=== PATIENT | female | born 1950 | race Caucasian/White ===

== ENCOUNTER 2016-10-04 06:20 | Inpatient (IN) ==
--- NOTE | 2016-10-03 20:53 | Discharge Summary ---
<Nelly Garcia - Last Filed: 10/03/16 20:50> Date of Encounter: 10/03/16 - Discharge Diagnosis (1) Loosening of knee joint prosthesis Priority: Primary Status: Acute Qualifiers: Encounter type: initial encounter Qualified Code(s): T84.038A - Mechanical loosening of other internal prosthetic joint, initial encounter; Z96.659 - Presence of unspecified artificial knee joint (2) HTN (hypertension) Priority: Secondary Status: Chronic Qualifiers: Hypertension type: essential hypertension Qualified Code(s): I10 - Essential (primary) hypertension (3) Pacemaker Priority: Secondary Status: Chronic (4) Rheumatoid arthritis Priority: Secondary Status: Chronic Qualifiers: Rheumatoid arthritis location: unspecified site Rheumatoid factor presence : unspecified presence Qualified Code(s): M06.9 - Rheumatoid arthritis, unspecified - Discharge Medications Home Medications: Aspirin Enteric Coated [Aspirin EC] 325 mg PO BID #42 tablet. 10/03/16 [Rx] OxyCODONE Immed Rel [Roxicodone 5 MG] 5 - 10 mg PO Q6HR PRN #40 tablet 10/03/16 [Rx] Etanercept [Enbrel] 50 mg SQ QWEEK 10/04/16 [History] Levothyroxine [Synthroid] 50 mcg PO DAILY 10/04/16 [History] Lisinopril/Hydrochlorothiazide [Zestoretic 20-25 mg Tablet] 1 tab PO DAILY 10/04 [History] Omeprazole [PriLOSEC] 40 mg PO DAILY 10/04/16 [History] Potassium Chloride [K-Tab ER] 20 meq PO BID 10/04/16 [History] Allergies/Adverse Reactions: Allergies codeine Adverse Reaction (Verified 10/04/16 12:39) Anaphylaxis Hydromorphone [From Dilaudid] Adverse Reaction (Verified 10/04/16 12:39) Anaphylaxis Hydroxychloroquine [From Plaquenil] Adverse Reaction (Verified 10/04/16 12:39) Rash rofecoxib [From Vioxx] Adverse Reaction (Verified 10/04/16 12:39) Rash Primary care physician: Sage Villafana MD - Patient Status Disposition: Home, Self-Care Condition: Good - Discharge Instructions Follow Up With: Sage Villafana MD [Primary Care Provider] - - Hospital Course Hospital course: Ms. Huynh is a 66 year old female - Time Spent with Patient Total time spent providing and/or coordinating discharge services: <Morteza Miller Ángel - Last Filed: 10/05/16 06:45> Date of Encounter: 10/05/16 Time of Encounter: 06:44 - Discharge Diagnosis (1) Loosening of knee joint prosthesis Priority: Primary Status: Acute Qualifiers: Encounter type: subsequent encounter Qualified Code(s): T84.038D - Mechanical loosening of other internal prosthetic joint, subsequent encounter; Z96.659 - Presence of unspecified artificial knee joint (2) HTN (hypertension) Priority: Secondary Status: Chronic Qualifiers: Hypertension type: essential hypertension Qualified Code(s): I10 - Essential (primary) hypertension (3) Pacemaker Status: Chronic (4) Rheumatoid arthritis Priority: Secondary Status: Chronic Qualifiers: Rheumatoid arthritis location: unspecified site Rheumatoid factor presence : unspecified presence Qualified Code(s): M06.9 - Rheumatoid arthritis, unspecified Date of admission: 10/04/16 06:26 Primary care physician: Sage Villafana MD - Patient Status Functional capacity at discharge: uses cane/walker Overall status at discharge: patient is progressing back to baseline - Hospital Course Hospital course: Ms. Huynh is a 66 year old female The patient had an uneventful postoperative course. They received antibiotics and physical therapy and were discharged in stable condition. There will follow -up in the office in 2 weeks. Aspirin DVT prophylaxis - Time Spent with Patient Total time spent providing and/or coordinating discharge services:
--- NOTE | 2016-10-04 06:26 | History & Physical Report ---
Date of Encounter: 10/04/16 Time of Encounter: 06:26 24 Hour HP Update - Instructions Instructions: If the History and Physical is less than 30 days old and was completed prior to A.M. admission and or procedure and has NOT been updated on calendar day of procedure please complete this update prior to performing procedure. - Update Patient reports changes in Medical Condition: No Changes in assessment/condition: No Changes in Medication: No Preop tests/diagnostics Reviewed: Yes Surgery Remains Indicated: Yes Consent for Planned Operative Procedure(s) Verified: Yes - Pre-Operative Checklist Preoperative Checklist Indicated: No Prophylactic Antibiotic Ordered: Yes Is VTE Prophylaxis Indicated?: Yes
[2016-10-04] MEDS ORDERED: CeFAZolin Pre 2,000 MG/100 ML 2,000 MG/100 ML BAG IVPB ONE (06:51)
[2016-10-04] MEDS ORDERED: Ringers Solution, Lactated 1,000 ML IVC SCH ×2 (07:00→10:32)
[2016-10-04] MEDS ORDERED: *HR* FentaNYL (PF) 100 MCG/2 ML VIAL ONE (07:18)
[2016-10-04] MEDS ORDERED: *HR* Propofol 200 MG/20 ML VIAL IVP ONE (07:18)
[2016-10-04] MEDS ORDERED: *HR* Midazolam HCl 2 MG/2 ML VIAL ONE (07:18)
[2016-10-04] MEDS ORDERED: Ondansetron 4 MG/2 ML VIAL ONE (07:22)
[2016-10-04] MEDS ORDERED: Dexamethasone 4 MG/ML VIAL ONE (07:22)
[2016-10-04] MEDS ORDERED: *HR* Phenylephrine 10 MG/ML VIAL ONE (07:22)
[2016-10-04] MEDS ORDERED: Lidocaine -MPF 2% 2 ML VIAL ONE (07:22)
[2016-10-04] MEDS ORDERED: Famotidine 20 MG/2 ML VIAL IVP ONE (07:45)
--- NOTE | 2016-10-04 07:49 | Anesthesia Evaluation PreOp ---
Date of Encounter: 10/04/16 Time of Encounter: 07:45 - Past History Planned Operation: Left TKA Revision Cardiac History: HTN, Pacemaker/ICD (Last interrogated ) Pulmonary History: Denies Any Significant HX SPORTS RECRUITER History: Denies Any Significant HX Other Medical History: GERD, Other (G6PD Def) Anesthesia History: No Prior Anesthetic Complications : No Alcohol Use: none Drug use: none Medications and Allergies Aspirin Enteric Coated [Aspirin EC] 325 mg PO BID #42 tablet. 10/03/16 [Rx] OxyCODONE Immed Rel [Roxicodone 5 MG] 5 - 10 mg PO Q6HR PRN #40 tablet 10/03/16 [Rx] Etanercept [Enbrel] 50 mg SQ QWEEK 10/04/16 [History] Levothyroxine [Synthroid] 50 mcg PO DAILY 10/04/16 [History] Lisinopril/Hydrochlorothiazide [Zestoretic 20-25 mg Tablet] 1 tab PO DAILY 10/04 [History] Omeprazole [PriLOSEC] 40 mg PO DAILY 10/04/16 [History] Potassium Chloride [K-Tab ER] 20 meq PO BID 10/04/16 [History] Allergies codeine Adverse Reaction (Unverified 11/26/15 09:32) Anaphylaxis Hydromorphone [From Dilaudid] Adverse Reaction (Unverified 11/26/15 09:32) Anaphylaxis Hydroxychloroquine [From Plaquenil] Adverse Reaction (Unverified 11/26/15 09:32) Rash rofecoxib [From Vioxx] Adverse Reaction (Unverified 11/26/15 09:32) Rash - Meds/Allergy Pre-op Review Medications Reviewed: Yes Allergies Reviewed: Yes Beta Blockers on Current Med List: No Anesthesia Results - Labs Laboratory Tests 09/23/16 09/23/16 08:34 08:34 Hgb 13.8 Hct 43.6 Plt Count 320 Sodium 136 Potassium 4.7 H BUN 17 Creatinine 0.81 - Imaging EKG: report reviewed (Electronic Atrial Pacemaker) Anesthesia Exam O2 Sat Height 1.6 m Height 1.6 m Height 1.6 m Weight 77.564 kg Weight 77.564 kg Weight 77.564 kg O2 Sat by Pulse Oximetry 95 Vital Signs Temp Pulse Resp BP Pulse Ox 98.2 F 82 18 148/74 95 10/04/16 06:39 10/04/16 06:39 10/04/16 06:39 10/04/16 06:39 10/04/16 06:39 Height: 5'3 Weight: 171 lbs NPO (# of Hours): MN - HEENT Pupil (Motor): Pupils equal, EOMI Mallampati: II Teeth: Edentulous Oral Opening: Less than or equal to 3 - SPORTS RECRUITER LOC: Oriented [employer] RE[employer]ITER Motor: Normal RUE, Normal LUE, Normal RLE, Normal LLE, Normal Face [employer] RE[employer] Sensory: Normal: RUE, LUE, RLE, LLE, Face - Cardiac Rhythm: Regular Murmur: None JVD: No Carotid Bruit: No - Pulmonary Breath Sounds: bilateral Clear Respiratory Effort: Symmetrical Anesthesia Assess/Plan ASA Score: 3 (Arrhythmia HTN GERD) Modified Darragh Scale for Level of Consciousness: Cooperative, oriented, and tranquil Anesthetic Plan: General, Regional Monitoring Plan: Standard Monitors Recovery Plan: PACU (Discussed GA and RA, agrees to proceed)
[2016-10-04] MEDS ORDERED: Tetracaine/PF 20 MG/2 ML AMPUL SPINA ONE (08:02)
--- NOTE | 2016-10-04 08:42 | Anesthesia Procedures ---
Date of Encounter: 10/04/16 Time of Encounter: 07:45 Procedures: Anesthesia - Nerve Block Procedure Date: 10/04/16 Time: 08:10 Pre-op Diagnosis: Left TKA Loosening Surgical Procedure: Left TKA Revision Tibial Component Checklist: Correct Patient Identifier Correct side: Left Blood Thinner: No Monitor Applied: EKG, BP, Pulse Oximetry Supplemental Oxygen via Nasal Cannula (L/min): 2 Sedation: Versed (mg): 2 Sedation: Fentanyl (mcg): 50 Indication: Post Op Analgesia Pre-op Neuro Deficits: No Block Type: Femoral Catheter placed: No Depth at skin (cm): 2 Sterile Technique: Yes Ultrasound used: Yes Anatomy identified: Yes Visual spread of Local: Yes Neuro Stimulation: Yes Nerve Stimulator Range: 0.2 - 0.4 mA Blood on Needle Aspiration: No Smooth Injection of Local: Yes Pain with Injection of Local: No Prep: Chlorhexadine, Alcohol Needle: 22 x 50 mm Stimuplex Local: Tetracaine (20), Other (Bupivacaine 0.5%) Volume (cc): 30 Number of Attempts: 1 Complications: None/effective block Vitals: Vital Signs/O2 Sat/Glucose, Most Current Temp Pulse Resp BP Pulse Ox 10/04/16 08:23 81 16 136/62 96 10/04/16 08:12 84 17 132/62 95 10/04/16 08:06 82 137/59 99 10/04/16 06:39 98.2 F 82 18 148/74 95
--- NOTE | 2016-10-04 09:16 | Orthopedic Operative Note ---
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 After general anesthesia was administered the operative knee was examined. Findings were noted in the exam under anesthesia. The operative extremity was prepped and draped in sterile surgical fashion. The patient received IV antibiotics prior to skin incision. A standard midline incision was made centered over the patella. The incision was made through the skin and subcutaneous tissue through the old incision. A medial parapatellar tendon approach was performed. Care was taken to preserve tissue along the medial aspect of the patella. And to protect the patella tendon. The deep MCL was released off the medial tibia. The infra patella fat pad was excised. Cultures were obtained as well as Gram stain. 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 An extensive synovectomy was performed. The knee was brought into flexion the tibial poly-was removed. The femur was well fixed. Attention was then turned to the tibial component. The tibial component was loose and removed with an osteotome without any bone loss. Tibia was recut just below the level of the cement mantle. The tibia was prepared first sized to a 3 reamed to a 12x50 stem. The finishing punch was seated. Trial had good fit and fixation. Trial reduction revealed full extension and full flexion no varus valgus instability with an 14 PS Lillian. Trial components removed knee sat for 2 minutes with a Betadine saline solution. It was irrigated out with pulse irrigation. Components were assembled on the back table. The tibia cemented. The 14 PS Lillian was seated and secure. The had full flexion and full extension and excellent patella tracking no varus valgus instability. After the cement hardened the knee was irrigated out again. The knee was taken through a range of motion had excellent patella tracking. The extensor mechanism was closed with a running #2 Fiberwire suture and a running #2 PDS suture. The deep tissue was irrigated and closed deep with #1 PDS suture superficially with 0 PDS suture. The skin was closed with Dermabond and skin anne. The patient was placed in a sterile dressing and postoperative brace. They were extubated and transferred to recovery room in stable condition. Anesthesia: GETA Surgeon: Morteza Miller Condition: stable Disposition: PACU
[2016-10-04] MEDS ORDERED: *HR* Morphine 10 MG/ML VIAL ONE (09:28)
[2016-10-04] MEDS: *HR* Morphine 2 MG/ML SYRINGE IVP PRN ×2 (09:58→10:08)
[2016-10-04 10:07] LABS: Hematocrit 37.6 % (35.3-44.9); Hemoglobin 11.8 g/dL (11.5-15.4)
--- NOTE | 2016-10-04 10:31 | Anesthesia Evaluation Post Op ---
Date of Encounter: 10/04/16 Time of Encounter: 10:29 - Vital Signs Vital Signs: Vital Signs/O2 Sat, Most Current Temp Pulse Resp BP Pulse Ox 97.9 F 86 16 120/57 100 10/04/16 10:27 10/04/16 10:27 10/04/16 10:27 10/04/16 10:10/04/16 10:27 - Lungs Lungs: Clear Ascult./Percussion - Airway Airway: Non-obstructed - Cardiovascular Regular Rate - Mental Status Mental Status: Alert & Oriented, Answers Appropriately - Pain Pain Scale: 0 Pain Scale used: Numeric (1 - 10) - Nausea Vomiting Nausea Vomiting: Not Present - Hydration Hydration: Ice chips, Has not voided - Discharge PostOp Status: Transfer Patient to floor
[2016-10-04] MEDS ORDERED: *HR* Morphine 2 MG/ML SYRINGE IVP PRN (10:32)
[2016-10-04] MEDS ORDERED: Ondansetron 4 MG/2 ML VIAL IVP PRN (10:32)
[2016-10-04] MEDS ORDERED: Naloxone 0.4 MG/ML INJ IVP PRN (10:32)
[2016-10-04] MEDS ORDERED: *HR* OxyCODONE Immed Rel 5 MG TABLET PO PRN (10:32)
[2016-10-04] MEDS ORDERED: Albuterol Neb 1.25 MG/3 ML VIAL IH ONE (10:32)
[2016-10-04] MEDS ORDERED: MOM Conc 10 ML UD.LIQ PO PRN (10:32)
[2016-10-04] MEDS ORDERED: Temazepam 15 MG CAPSULE PO PRN (10:32)
[2016-10-04] MEDS ORDERED: (Etanercept [Enbrel] 50 MG) SQ SCH (10:32)
[2016-10-04] MEDS ORDERED: Acetaminophen 325 MG TABLET PO PRN (10:32)
[2016-10-04] MEDS ORDERED: Sennosides 8.6 MG TABLET PO PRN (10:32)
[2016-10-04] MEDS: *HR* OxyCODONE Immed Rel 5 MG TABLET PO PRN (12:47)
[2016-10-04] MEDS: ceFAZolin 2,000 MG in D5% in Water 100 ML IVPB SCH ×2 (15:56→23:47)
[2016-10-04] MEDS ORDERED: *HR* Promethazine 25 MG/ML VIAL IVP PRN (16:28)
[2016-10-04] MEDS ORDERED: *HR* Promethazine 25 MG/ML VIAL ONE (16:35)
[2016-10-04] MEDS: *HR* Enoxaparin 30 MG/0.3 ML SYRINGE SQ SCH (16:41)
[2016-10-04] MEDS ORDERED: *HR* Enoxaparin 30 MG/0.3 ML SYRINGE SQ SCH (18:00)
[2016-10-05] MEDS: *HR* OxyCODONE Immed Rel 5 MG TABLET PO PRN ×2 (02:26→09:39)
[2016-10-05] MEDS: *HR* Enoxaparin 30 MG/0.3 ML SYRINGE SQ SCH (05:15)
[2016-10-05 06:14] LABS: Hemoglobin 10.2 g/dL (11.5-15.4)
[2016-10-05 06:38] LABS: BUN/Creatinine Ratio 19 (6-26); Blood Urea Nitrogen 13 mg/dL (7-20); Calcium 9.7 mg/dL (8.6-10.8); Carbon Dioxide 26 mEq/L (19-29); Chloride 106 mEq/L (98-109); Glucose 104 mg/dL (70-99); Osmolality,Calculated 288 (280-300); Potassium 4.3 mEq/L (3.5-4.5); Sodium 139 mEq/L (136-145); eGFR For African Americans > 60 (> 60); eGFR For Non-African Americans > 60 (> 60)
--- NOTE | 2016-10-05 06:44 | Orthopedics Progress Note ---
Date of Encounter: 10/05/16 Time of Encounter: 06:44 - Assessment and Plan (1) Loosening of knee joint prosthesis Current Visit: Yes Status: Acute Qualifiers: Encounter type: subsequent encounter Qualified Code(s): T84.038D - Mechanical loosening of other internal prosthetic joint, subsequent encounter; Z96.659 - Presence of unspecified artificial knee joint (2) HTN (hypertension) Current Visit: Yes Status: Chronic Qualifiers: Hypertension type: essential hypertension Qualified Code(s): I10 - Essential (primary) hypertension (3) Pacemaker Current Visit: Yes Status: Chronic (4) Rheumatoid arthritis Current Visit: Yes Status: Chronic Qualifiers: Rheumatoid arthritis location: unspecified site Rheumatoid factor presence : unspecified presence Qualified Code(s): M06.9 - Rheumatoid arthritis, unspecified Subjective Interval history: Patient was seen this morning doing well without complaints. Afebrile vital signs stable. Operative extremity: Neurovascularly intact Dressing clean dry and intact Calves nontender Assessment and plan: Continue with postoperative care Hematocrit 32 discharged today Objective Vital signs: Vital Signs Temp Pulse Resp BP Pulse Ox 10/05/16 04:00 97.0 F L 88 17 130/70 99 10/05/16 00:00 97.2 F L 101 17 137/77 100 10/04/16 20:00 97.6 F 103 17 141/78 100 10/04/16 13:34 98.0 F 99 16 130/76 95 10/04/16 12:46 16 100 10/04/16 12:40 94 16 136/82 98 10/04/16 11:34 97.6 F 83 16 136/82 99 10/04/16 11:03 97.5 F L 88 16 124/81 98 10/04/16 10:43 97.7 F 84 16 136/84 98 10/04/16 10:27 97.9 F 86 16 120/57 100 10/04/16 10:17 88 16 122/49 100 10/04/16 10:07 97.9 F 91 16 131/60 96 10/04/16 09:57 89 16 139/73 97 10/04/16 09:47 87 16 133/67 96 10/04/16 09:37 98 F 84 16 138/75 95 10/04/16 08:23 81 16 136/62 96 10/04/16 08:12 84 17 132/62 95 10/04/16 08:06 82 137/59 99 Intake and Output 10/04/16 10/04/16 10/05/16 15:59 23:59 07:59 Intake Total 100 / 100 400 / 400 1100 / 1100 Output Total 200 / 200 550 / 550 250 / 250 Balance -100 / -100 -150 / -150 850 / 850 Intake: IV Fluids 100 / 100 100 / 100 1100 / 1100 Lactated Ringers 1,000 ML 1000 / 1000 @ 75 mls/hr IVC .[id number] ANAND Rx#:[id number] Ancef 2,000 MG In 100 / 100 100 / 100 Dextrose 5% 100 ML @ 200 mls/hr IVPB Q8H ANAND Rx#: [id number] Ancef Premix 2,000 MG/100 100 / 100 ML 2,000 mg In 100 ml @ 200 mls/hr IVPB PREOP ONE Rx#:[id number] Oral 0 / 0 300 / 300 Output: Urine 550 / 550 250 / 250 Estimated Blood Loss 200 / 200 Other: # Voids 1 1 - Labs CBC & BMP: 10/05/16 05:50 10/05/16 05:50 Labs: Abnormal lab results Hgb 10.2 g/dL (11.5-15.4) L D 10/05/16 05:50 Hct 32.0 % (35.3-44.9) L 10/05/16 05:50 Glucose 104 mg/dL (70-99) H 10/05/16 05:50 - VTE Documentation of Mechanical Device: Venous foot pump, device Consult Discharge Plan - Plan Referrals: Sage Villafana MD [Primary Care Provider] -
[2016-10-05 07:23] VITALS: BP 125/73
== END 2016-10-05 11:30 | disposition home or self-care (01) | DRG 468 ==
LOC: SAMDAY 06:20 → 3NENU 06:26
PROVIDERS: ADMIT Orthopaedic Surgery; ATTEND Orthopaedic Surgery

== ENCOUNTER 2021-10-14 06:45 | Inpatient (IN) ==
[~2021-10-14 06:45] MED LIST: Hydrogen Peroxide 3% (Sterile) 473 ML SOLUTION IR ONE
[2021-10-14] MEDS ORDERED: Famotidine 20 MG/2 ML VIAL IVP ONE (07:40)
[2021-10-14] MEDS ORDERED: Acetaminophen IV 1,000 MG/100 ML BAG IVPB ONE (07:40)
[2021-10-14] MEDS ORDERED: *HR* Propofol 200 MG/20 ML VIAL IVP ONE (07:42)
[2021-10-14] MEDS ORDERED: *HR* FentaNYL (PF) 100 MCG/2 ML VIAL ONE ×2 (07:42→11:14)
[2021-10-14] MEDS ORDERED: Lidocaine -MPF 2% 5 ML VIAL ONE ×2 (07:42→07:44)
[2021-10-14] MEDS ORDERED: Ondansetron 4 MG/2 ML VIAL ONE ×2 (07:42→13:19)
[2021-10-14] MEDS ORDERED: Ropivacaine/PF 0.5% 30 ML VIAL ONE (07:47)
[2021-10-14] MEDS ORDERED: CeFAZolin Syr 2,000MG/20 ML 2,000 MG/20 ML SYRINGE IVPB ONE (08:15)
[2021-10-14] MEDS ORDERED: Ringers Solution, Lactated 1,000 ML IVC SCH (08:15)
[2021-10-14] MEDS ORDERED: *HR* Succinylcholine 200 MG/10 ML VIAL IVP ONE (09:23)
[2021-10-14] MEDS ORDERED: TOTAL JOINT MIXTURE (100ML) INTRAART ONE (09:40)
[2021-10-14] MEDS ORDERED: Povidone-Iodine 45 ML, Sodium Chloride IRRigation 1,000 ML IR ONE (09:40)
[2021-10-14] MEDS ORDERED: Vancomycin 1,000 MG VIAL ONE ×2 (09:44→10:03)
[2021-10-14] MEDS ORDERED: Tobramycin Sulf (Sterile) 1.2 GM VIAL ONE (10:03)
[2021-10-14] MEDS ORDERED: Gentamicin 80 MG/2 ML VIAL ONE ×2 (10:06→10:08)
[2021-10-14] MEDS ORDERED: *HR* Promethazine 25 MG/ML VIAL IM PRN (13:41)
[2021-10-14] MEDS ORDERED: Ondansetron 4 MG/2 ML VIAL IVP PRN (13:41)
[2021-10-14] MEDS ORDERED: MOM Conc 10 ML UD.LIQ PO PRN (13:41)
[2021-10-14] MEDS ORDERED: Naloxone 0.4 MG/ML INJ IVP PRN (13:41)
[2021-10-14] MEDS ORDERED: Sennosides 8.6 MG TABLET PO PRN (13:41)
[2021-10-14] MEDS: *HR* OxyCODONE Immed Rel 5 MG TABLET PO PRN (14:34)
[2021-10-14] MEDS: Ascorbic Acid 500 MG TABLET PO SCH (17:53)
[2021-10-14] MEDS: CeFAZolin 2 GM/120 ML BAG IVPB SCH (18:10)
[2021-10-15] MEDS: CeFAZolin 2 GM/120 ML BAG IVPB SCH (01:13)
[2021-10-15] MEDS: *HR* OxyCODONE Immed Rel 5 MG TABLET PO PRN ×2 (03:16→15:39)
[2021-10-15 04:46] LABS: Basophils % 0.1 %; Hematocrit 30.2 % (35.3-44.9); Hemoglobin 9.9 g/dL (11.5-15.4); Immature Granulocytes % 0.6 % (0-4); Lymphocytes % 5.5 %; Mean Corpuscular HGB Conc 32.8 g/dL (31.6-35.5); Mean Corpuscular Hemoglobin 28.9 pg (28.0-33.3); Mean Platelet Volume 10.2 fL (9.4-12.4); Monocytes # 0.8 K/mcL (0.0-1.3); Monocytes % 4.5 %; Neutrophils # 16.2 K/mcL (1.6-8.9); Platelet Count 257 K/mcL (140-400); Red Blood Count 3.43 M/mcL (3.82-4.97); Red Cell Distribution Width 14.6 % (11.5-14.5); Segmented Neutrophils % 89.3 %; White Blood Count 18.2 K/mcL (4.3-11.1)
[2021-10-15 05:06] LABS: BUN/Creatinine Ratio 27 (6-26); Blood Urea Nitrogen 21 mg/dL (8-23); Calcium 9.1 mg/dL (8.6-10.3); Carbon Dioxide 26 mEq/L (23-29); Chloride 105 mEq/L (98-107); Glucose 127 mg/dL (70-105); Osmolality,Calculated 283 (280-300); Sodium 134 mEq/L (136-145); eGFR For African Americans > 60 (> 60); eGFR For Non-African Americans > 60 (> 60)
[2021-10-15] MEDS: Ascorbic Acid 500 MG TABLET PO SCH (08:40)
[2021-10-15] MEDS ORDERED: Multivit/Ca/Min/Fe/FA 1 TAB TABLET PO SCH (09:00)
[2021-10-15 13:36] VITALS: BP 119/64; PULSE 74; TEMP 97.9; O2SAT 97
[2021-10-15] MEDS ORDERED: Aspirin Enteric Coated 81 MG Tablet PO SCH (21:00)
== END 2021-10-15 15:57 | disposition home or self-care (01) | DRG 468 ==
LOC: SDCAOSI 06:45 → 4WAOSI 14:56
PROVIDERS: ADMIT Orthopaedic Surgery; ATTEND Orthopaedic Surgery